=== PATIENT | male | born 1990 | race Caucasian/White ===

== ENCOUNTER 2018-06-11 17:11 | Emergency (ER) | payer OTHER, SELFPAY ==
[2018-06-11 17:17] VITALS: BP 148/87; PULSE 75; RESP 18; TEMP 37; O2SAT 99; BMI 30.7
--- NOTE | 2018-06-11 17:30 | DI.RAD.S_ITS ---
PROCEDURE: XR CHEST 1V INDICATIONS: Chest pain TECHNIQUE: One view of the chest was acquired. COMPARISON: None. FINDINGS: Surgical changes and devices: None. Lungs and pleura: Lungs are clear. No pleural effusions or pneumothorax. Mediastinum: Mediastinal contours appear normal. Heart size is normal. Bones and chest wall: No suspicious bony lesions. Overlying soft tissues appear unremarkable. IMPRESSION: No evidence acute pulmonary process. Dictated by: Deangelo Cross M.D. on 06/11/2018 at 18:16 Approved by: Deangelo Cross M.D. on 06/11/2018 at 18:18
--- NOTE | 2018-06-11 17:35 | ED_ITS ---
HPI - Chest Pain General Chief Complaint: Chest Pain Stated Complaint: chest tightness Time Seen by Provider: 06/11/18 17:30 Source: patient Mode of arrival: ambulatory Limitations: no limitations History of Present Illness HPI narrative: Otherwise healthy 28-year-old male here for evaluation of left- sided chest discomfort. He states that it started last evening. Does not get worse with palpation but does get worse when he takes a big deep breath. His localized to his left side of his chest. He did state in the past 24 hours he thought maybe it got worse with palpation. 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 Is not worse with moving his left arm. Came into the emergency department to ?get checked out ? Related Data Home Medications Medication Instructions Recorded Confirmed No Known Home Medications 06/11/18 06/11/18 Allergies Allergy/AdvReac Type Severity Reaction Status Date / Time No Known Allergies Allergy Uncoded 06/11/18 17:22 Review of Systems Constitutional Denies fever(s) Cardiovascular Reports chest pain, Denies edema, Denies irregular heart rhythm, Denies palpitations and Denies dyspnea on exertion Respiratory Reports pain on inspiration and Denies dyspnea on exertion Gastrointestinal Gastrointestinal: Denies abdominal pain, Denies nausea and Denies vomiting Integumentary/Breasts Denies lesions and Denies rash Endocrine Denies palpitations Hematologic/Lymphatic Denies easy bleeding and Denies easy bruising Allergic/Immunologic Denies urticaria [facility] Medical History Healthy adult (Acute) Social History Smoking Status: Never smoker Social History Smoking Status: Never smoker Exam Initial Vital Signs Initial Vital Signs: Vital Signs Temperature 98.6 F 06/11/18 17:17 Pulse Rate 75 06/11/18 17:17 Respiratory Rate 18 06/11/18 17:17 Blood Pressure 148/87 H 06/11/18 17:17 Pulse Oximetry 99 06/11/18 17:17 Const General: cooperative, comfortable, well developed, well groomed and No acute distress Orientation: alert, awake and oriented x3 HENMT Head: normal to inspection and normocephalic Resp Effort & Inspection: normal respiratory effort Cardio Rate: regular rate Rhythm: regular rhythm Pulses: radial pulses present GI Inspection: non-distended Palpation: soft Skin Lesions: no lesions Rashes: no rashes Neuro General: alert, awake and oriented x3 Extrem General: normal to inspection and capillary refill normal Psych Appearance: grossly normal and well kempt Scores PERC Score Age greater than or equal to 50 years: No Heart rate greater than or equal to 100 bpm: No Room Air O2 Sat less than 95%: No Unilateral leg swelling: No Recent trauma or surgery: No Hemoptysis: No Prior PE or DVT: No Hormone Use: No Total PERC Score: 0 Course Orders Ordered: ED Orders 06/11/18 17:22 EKG-12 Lead Stat 06/11/18 17:30 XR chest 1V Stat Vital Signs - 8 hr 06/11/18 17:17 06/11/18 17:36 06/11/18 18:00 Temperature 98.6 F 98.6 F Pulse Rate 75 79 70 Respiratory Rate 18 15 15 Blood Pressure 148/87 H Blood Pressure [Left Arm] 143/79 H 121/75 Pulse Oximetry 99 97 98 MDM - Chest Pain Imaging Data Chest x-ray: Radiologist's impression: Patient: Louis Hardin LMR#: [id number] : 1990Acct:[id number] Age/Sex: 28 / MDate of Service: 06/11/18 Loc: ED Accession Number: [id number] Procedure: XR chest 1V Ordering Provider: Arun Tafoya D.O. PROCEDURE: XR CHEST 1V INDICATIONS: Chest pain TECHNIQUE: One view of the chest was acquired. COMPARISON: None. FINDINGS: Surgical changes and devices: None. Lungs and pleura: Lungs are clear. No pleural effusions or pneumothorax. Mediastinum: Mediastinal contours appear normal. Heart size is normal. Bones and chest wall: No suspicious bony lesions. Overlying soft tissues appear unremarkable. IMPRESSION: No evidence acute pulmonary process. Dictated by: Deangelo Cross M.D. on 06/11/2018 at 18:16 Approved by: Deangelo Cross M.D. on 06/11/2018 at 18:18 ECG Data Attestation: I personally reviewed and interpreted this ECG as follows: Prior ECG tracings: not available for review Interpretation: Sinus rhythm Ventricular rate is 72 Normal QRS Normal QTC Normal axis No ST T wave changes MDM Narrative Medical decision making narrative: Low risk for ACS, but no pneumonia, low risk for PE. EKG is unremarkable. Hold on further workup for now. Patient was given a card to help him establish primary care. We discussed return precautions. He expressed understanding and agreement with plan. Discharge Plan Departure Patient Disposition: Home Clinical Impression: Atypical chest pain Instructions: DI for Atypical Chest Pain Activity Restrictions/Additional Instructions: Recommend that you call the number on the card your provided to establish primary care in the local area. Return to the emergency department for any new or worsening symptoms Prescriptions: No Action No Known Home Medications RF: 0
[2018-06-11 17:36] VITALS: BP 143/79; PULSE 79; RESP 15; TEMP 37; O2SAT 97
[2018-06-11 18:00] VITALS: BP 121/75; PULSE 70; RESP 15; O2SAT 98
[2018-06-11 18:48] VITALS: BP 137/90; PULSE 70; RESP 18; O2SAT 95
== END 2018-06-11 18:49 | disposition home or self-care (01) ==
PROVIDERS: Emergency Provider Emergency Medicine
DX: R07.89 Other chest pain (principal)
CPT/HCPCS: 71045; 93005; 93010; 99282; 99284